=== PATIENT | female | born 1985 | race American Indian/Alaskan Native ===

== ENCOUNTER 2016-08-25 13:40 | Outpatient (CLI) | payer BC ==
--- NOTE | 2016-08-25 15:56 | Mammography Report ---
BILATERAL DIGITAL SCREENING MAMMOGRAM with CAD: 08/25/16 13:40:00 CLINICAL: Baseline screening. Six FINDINGS: The breasts are heterogeneously dense, which may obscure small masses. No mass, architectural distortion or suspicious calcifications. IMPRESSION: No mammographic evidence of malignancy. BI-RADS CATEGORY: 1 - - Negative RECOMMENDATION: Routine mammographic screening in one year. COMMENT: Patient follow-up letters are generated by our [employer] application.
== END 2016-08-25 13:41 | disposition home or self-care (01) ==
LOC: SPVWC 13:40
PROVIDERS: ATTEND Advanced Practice Midwife
DX: Z12.31 Encounter for screening mammogram for malignant neoplasm of breast (principal)
CPT/HCPCS: 77067; G0202

== ENCOUNTER 2020-09-29 07:44 | Emergency (ER) | payer BC ==
[2020-09-29 07:52] VITALS: BP 126/87
--- NOTE | 2020-09-29 08:03 | Emergency Department Report ---
Abscess Boil HPI - HPI Chief Complaint: Skin/Abscess/Foreign Body Stated Complaint: TATTOO INFECTION Time Seen by Provider: 09/29/20 08:00 Duration: 3 Days Location: Upper Extremity Severity: Mild History: Yes Pain, No Fever, No Purulent Drainage, No Numbness, No Foreign Body, No Previous History, No Insect Bite HPI: 35 YO AA female comes to the emergency room after getting a tattoo about a week ago. She is complaining of pain at the tattoo site. She does not fact have some clear drainage and swelling. There is redness around areas of the right lower arm tattoo. Distal neurovascular exam and peripheral vascular exam are normal. She has no streaking up her arm. She has no fever tachycardia or hypotension. Home Medications: Previous Rx's Medication Instructions Recorded Last Taken Type cephALEXin [Keflex] 500 mg PO Q12HR #20 cap 09/29/20 Unknown Rx Allergies/Adverse Reactions: Allergies Allergy/AdvReac Type Severity Reaction Status Date / Time ibuprofen AdvReac Vomiting Verified 09/29/20 07:51 ED Review of Systems ROS: Stated complaint: TATTOO INFECTION Other details as noted in HPI Comment: All other systems reviewed and negative ED Past Medical Hx - Past Medical History Previous Medical History?: No - Surgical History Additional Surgical History: partial hysterectomy. csection x3 - Social History Smoking Status: Never Smoker Substance Use Type: None - Medications Home Medications: Home Medications Medication Instructions Recorded Confirmed Last Taken Type cephALEXin [Keflex] 500 mg PO Q12HR #20 cap 09/29/20 Unknown Rx ED Abscess Boil Physical Exam - Exam General: Vital signs noted. No distress. Alert and acting appropriately. Exam: Yes Tenderness, Yes Surrounding Cellulites/Erythema, Yes Normal Neurologic Exam, Yes Normal Circulation, No Fluctuance, No Lymphangitis, No Crepitation, No Heart Murmur Exam: There is no abscess. The tattoo of the right lower arm has areas of erythema and clear drainage. Tender to touch. Radial and ulnar pulses +2 bilaterally. Full range of motion of extremity including distal fingers. ED Course Vital Signs 09/29/20 07:49 Temperature 99.2 F Pulse Rate 72 Respiratory 18 Rate Blood Pressure 126/87 O2 Sat by Pulse 99 Oximetry Critical care attestation.: If time is entered above; I have spent that time in minutes in the direct care of this critically ill patient, excluding procedure time. ED Medical Decision Making - Medical Decision Making Vital Signs 09/29/20 07:49 Temperature 99.2 F Pulse Rate 72 Respiratory 18 Rate Blood Pressure 126/87 O2 Sat by Pulse 99 Oximetry Vital signs noted. Temp 99 2 in triage. Patient has been self-medicating with left over amoxicillin. Patient educated on use of antibiotics. Tdap is up-to-date. On discharge patient remains neurovascularly intact Patient being discharged home with discharge plan of care that she verbalizes understanding of. This includes taking her Keflex until gone. She will use Tylenol and Motrin for pain. Warm compresses may provide some comfort. Patient is to follow-up with PCP next week. - Differential Diagnosis Infected tattoo. ED Disposition Clinical Impression: Cellulitis, History of tattoo Disposition: - TO HOME OR SELFCARE Is pt being admited?: No Does the pt Need Aspirin: No Condition: Stable Instructions: Cellulitis, Adult Additional Instructions: TAKE MED UNTIL GONE FOLLOW UP WITH PCP NEXT WEEK TO BE SURE THIS IS GETTING BETTER REFERRAL BELOW Prescriptions: cephALEXin [Keflex] 500 mg PO Q12HR #20 cap Referrals: LAURO KNIGHT MD [Staff Physician] - 3-5 Days Time of Disposition: 08:02
== END 2020-09-29 08:26 | disposition home or self-care (01) ==
LOC: ED 07:44
DX: L03.113 Cellulitis of right upper limb (principal); Z98.890 Other specified postprocedural states; Z79.899 Other long term (current) drug therapy; Z88.8 Allergy status to other drugs, medicaments and biological substances
CPT/HCPCS: 99282